=== PATIENT | female | born 2000 | race Caucasian/White ===

== ENCOUNTER 2021-06-27 18:24 | Emergency (ER) | payer BC, SELFPAY ==
--- NOTE | 2021-06-27 18:28 | ED.SKABFB ---
HPI - Skin/Abscess/Foreign Bdy General Chief complaint: Skin/Abscess/Foreign Body Stated complaint: insect bite Time Seen by Provider: 06/27/21 18:28 Source: patient Mode of arrival: ambulatory Limitations: no limitations History of Present Illness HPI narrative: Ms. Johnson is a 21-year-old female patient presenting to the clinic today with complaints of a possible insect bite/sting to the right outer thigh. She reports she was attacked by a bee yesterday after it got in her hair and she swatted at it and it stung her on her right thigh. Unknown if stinger is still retained. complaint: insect bite/sting Related Data Home Medications Medication Instructions Recorded Confirmed etonogestrel [Nexplanon] 1 implant SUBDERMAL ONCE 06/27/21 06/27/21 Allergies Allergy/AdvReac Type Severity Reaction Status Date / Time No Known Allergies Allergy Verified 06/27/21 18:43 Review of Systems Review of Systems: Pertinent positives per HPI. Patient denies any fever, chills, rash, headache, visual changes, dizziness, cough, runny nose, sore throat, shortness of breath, chest pain, palpitations, nausea, vomiting, diarrhea, constipation, abdominal pain, or any urinary issues. PMFSH Comments At the time of my signature, I reviewed and agree with the nursing past medical, surgical, social, and family history. There is no relevant family history pertinent to the patient complaint. Exam Narrative: General: Well-developed, well nourished, in no apparent distress Head: Normocephalic, atraumatic. Cardio: Regular rate and rhythm, s1 and s2 normal, no murmur appreciated. Resp: Clear to auscultation bilaterally, no rhonchi, rales, wheezing or rubs. Integumentary: [place], warm, and dry, intact without lesion, right inner thigh rash that looks as though was a target, redness with indurated area measuring 4-1/2 x 5 cm. Stinger/foreign body still in the center of the rash. Stinger was removed using alcohol swab and an 18-gauge needle. Course Course Emergency Course: Portions of this record may have been created with voice recognition software. Level of Care: Express Care Visit Vital Signs Vital signs: Vital signs reviewed MDM - Skin/Abscess/Foreign Bdy MDM Narrative Medical decision making narrative: At the time of assessment patient is resting comfortably on the exam table. Has a retained stinger in her right thigh with a localized target-like rash. Stinger was removed using an alcohol swab and the bevel of an 18-gauge needle. We will go ahead and give a prescription for doxycycline if needed as she is heading to [place] tomorrow. Discussed applying hydrocortisone and taking Benadryl as needed for itching. Patient voiced understanding of discharge instructions and agrees to treatment plan. Differential Diagnosis Differential diagnosis: Likely abscess of skin or subcutaneous tissue, viral exanthem, dermatophytosis, urticaria, herpes zoster, allergic reaction to drug, cellulitis, eczema, insect bites, impetigo and contact dermatitis Discharge Plan Discharge Clinical Impression: Infected insect bite or sting Patient Disposition: Home, Self-Care Condition: Stable Instructions: Insect Bite or Sting (ED) Additional Instructions: Insect stinger was removed in the clinic Doxycycline as prescribed May apply hydrocortisone cream to the affected area Follow-up with your PCP as needed Prescriptions: New doxycycline monohydrate 100 mg capsule 100 mg PO BID 7 Days Qty: 14 RF: 0 No Action Nexplanon 68 mg Implant 1 implant SUBDERMAL ONCE RF: 0 Follow-up/Referrals: UNKNOWN,DOCTOR [Primary Care Provider] - Time of Disposition: 18:43 Quality NIHSS Nursing Documentation ED NIHSS nursing documentation: reviewed/agree
[2021-06-27 18:35] VITALS: BP 123/64; PULSE 87; RESP 16; TEMP 37.6; O2SAT 99
== END 2021-06-27 18:50 | disposition home or self-care (01) ==
LOC: EXPCOLL 18:30
PROVIDERS: Emergency Provider Nurse Practitioner Family
DX: L08.9 Local infection of the skin and subcutaneous tissue, unspecified (principal); T63.441A Toxic effect of venom of bees, accidental (unintentional), initial encounter
CPT/HCPCS: 99203; G0463